=== PATIENT | male | born 1970 | race Caucasian/White ===

== ENCOUNTER 2018-05-08 14:28 | Emergency (ER) | payer OTHER ==
--- NOTE | 2018-05-08 15:54 | ER ---
Nurse's Notes [facility] Name: Errol Estrada Age: 47 yrs Sex: Male : 1970 Arrival Date: 05/08/2018 Time: 14:31 Bed 16 Private MD: None, None Diagnosis: An's palsy Presentation: 05/08 14:38 Presenting complaint: Patient states: right facial droop and numbness to right side of aa5 lips. Pt states "I woke up around 6am with the symptoms". Transition of care: patient was not received from another setting of care. Risk Assessment: Do you want to hurt yourself or someone else? Patient reports no desire to harm self or others. Initial Sepsis Screen: Does the patient meet any 2 criteria? No. Patient's initial sepsis screen is negative. Does the patient have a suspected source of infection? No. Patient's initial sepsis screen is negative. Care prior to arrival: None. 14:38 Method Of Arrival: Wheelchair aa5 14:38 Acuity: ROMELIA 3 aa5 14:45 No acute neurological deficit is noted. Onset of symptoms was May 08, 2018 at 06:00. Triage Assessment: 14:43 The onset of the patients symptoms was May 08, 2018 at 06:00. General: Appears in hj no apparent distress. uncomfortable, Behavior is calm, cooperative, appropriate for age. Pain: Denies pain. EENT: No signs and/or symptoms were reported regarding the EENT system. Neuro: Level of Consciousness is awake, alert, obeys commands, Oriented to person, place, time, situation, Appropriate for age Reports numbness. Cardiovascular: Capillary refill < 3 seconds Patient's skin is warm and dry. Respiratory: Airway is patent Respiratory effort is even, unlabored, Respiratory pattern is regular, symmetrical. GI: No signs and/or symptoms were reported involving the gastrointestinal system. : No signs and/or symptoms were reported regarding the genitourinary system. Derm: No signs and/or symptoms reported regarding the dermatologic system. Musculoskeletal: Reports numbness in R face, R eyebrow reports facial droop. Stroke Activation: Symptom onset > 6 hours Physician: Stroke Attending; Name: ; Notified At: ; Arrived At: Physician: Chief Stroke Resident; Name: ; Notified At: ; Arrived At: Physician: Stroke Resident; Name: ; Notified At: ; Arrived At: Physician: ED Attending; Name: ; Notified At: ; Arrived At: Physician: ED Resident; Name: ; Notified At: ; Arrived At: Historical: - Allergies: 14:37 No Known Allergies; aa5 - Home Meds: 14:37 None [Active]; aa5 - PMHx: 14:37 None; aa5 - PSHx: 14:37 None; aa5 - Immunization history:: Flu vaccine is not up to date. - Social history:: Smoking status: Patient uses tobacco products, chewing tobacco, Patient/guardian denies using alcohol, street drugs, The patient lives with family. - Ebola Screening: : No symptoms or risks identified at this time. - Family history:: not pertinent. Screenin:43 Abuse screen: Denies threats or abuse. Denies injuries from another. Nutritional hj screening: No deficits noted. Tuberculosis screening: No symptoms or risk factors identified. Fall Risk None identified. Assessment: 14:59 Reassessment: provider in room; provider states, not a stroke work up;. hj Vital Signs: 14:38 BP 152 / 100; Pulse 76; Resp 18 S; Temp 99.0(TE); Pulse Ox 96% on R/A; Weight 90.72 kg aa5 (R); Height 5 ft. 8 in. (172.72 cm) (R); Pain 0/10; 14:38 Body Mass Index 30.41 (90.72 kg, 172.72 cm) aa5 ED Course: 14:31 Patient arrived in ED. mr 14:31 None, None is Private Physician. mr 14:37 Arm band placed on. aa5 14:39 Triage completed. aa5 14:42 Deric Hastings MD is Attending Physician. ma2 14:42 Kevin Wheeler RN is Primary Nurse. hj 14:59 Patient has correct armband on for positive identification. Call light in reach. Side hj rails up X 1. Side rails up X2. Adult w/ patient. 15:21 No provider procedures requiring assistance completed. Patient did not have IV access hj during this emergency room visit. Administered Medications: No medications were administered Outcome: 15:08 Discharge ordered by . ma2 15:21 Discharged to home ambulatory, with family. hj 15:21 Condition: stable 15:21 Discharge instructions given to patient, family, Instructed on discharge instructions, follow up and referral plans. medication usage, Demonstrated understanding of instructions, follow-up care, medications, Prescriptions given X 3. 15:22 Patient left the ED. elma Signatures: Adela Judge Audri, RN RN aa5 Kevin Wheeler RN RN hj Deric Hastings MD MD ma2
--- NOTE | 2018-05-08 15:54 | EDPHYS ---
Physician Documentation [facility] Name: Errol Estrada Age: 47 yrs Sex: Male : 1970 Arrival Date: 05/08/2018 Time: 14:31 Bed 16 Private MD: None, None ED Physician Deric Hastings HPI: 05/08 15:04 This 47 yrs old Male presents to ER via Wheelchair with complaints of Facial ma2 Droop. 15:04 The patient presents to the emergency department with weakness of the right side of the ma2 face, that is moderate. Onset: The symptoms/episode began/occurred suddenly, 12 hour(s) ago. Context: occurred at home. Associated signs and symptoms: Pertinent negatives: altered mental status, chills, dizziness, fever, headache, nausea, seizure, syncope, blurred vision, double vision. Severity of symptoms: At their worst the symptoms were moderate in the emergency department the symptoms are unchanged. Patient's baseline: Neuro: alert and fully oriented, Motor: no deficits, Ambulation: Speech: normal, The patient has a previous history of. Current symptoms: Currently, the patient is not experiencing any symptoms. The patient has not experienced similar symptoms in the past. Historical: - Allergies: 14:37 No Known Allergies; aa5 - Home Meds: 14:37 None [Active]; aa5 - PMHx: 14:37 None; aa5 - PSHx: 14:37 None; aa5 - Immunization history:: Flu vaccine is not up to date. - Social history:: Smoking status: Patient uses tobacco products, chewing tobacco, Patient/guardian denies using alcohol, street drugs, The patient lives with family. - Ebola Screening: : No symptoms or risks identified at this time. - Family history:: not pertinent. ROS: 15:04 Constitutional: Negative for fever, chills, and weight loss, Eyes: Negative for injury, ma2 pain, redness, and discharge. 15:04 Neuro: Positive for weakness. 15:04 Neuro: Negative for altered mental status, dizziness, gait disturbance, headache, loss of consciousness, numbness, syncope, tinnitus, tremor, visual changes. 15:04 All other systems are negative. Exam: 15:04 Constitutional: This is a well developed, well nourished patient who is awake, alert, ma2 and in no acute distress. ENT: Nares patent. No nasal discharge, no septal abnormalities noted. Tympanic membranes are normal and external auditory canals are clear. Oropharynx with no redness, swelling, or masses, exudates, or evidence of obstruction, uvula midline. Mucous membranes moist. Chest/axilla: Normal chest wall appearance and motion. Nontender with no deformity. No lesions are appreciated. Cardiovascular: Regular rate and rhythm with a normal S1 and S2. No gallops, murmurs, or rubs. Normal PMI, no JVD. No pulse deficits. Respiratory: Lungs have equal breath sounds bilaterally, clear to auscultation and percussion. No rales, rhonchi or wheezes noted. No increased work of breathing, no retractions or nasal flaring. Abdomen/GI: Soft, non-tender, with normal bowel sounds. No distension or tympany. No guarding or rebound. No evidence of tenderness throughout. 15:04 Neuro: Cranial nerves: facial droop noted on right, with forehead involved. ear exam wnl, no rashes , Cerebellar function: is grossly normal, Motor: moves all fours, Sensation: is normal, Gait: is steady. Vital Signs: 14:38 BP 152 / 100; Pulse 76; Resp 18 S; Temp 99.0(TE); Pulse Ox 96% on R/A; Weight 90.72 kg aa5 (R); Height 5 ft. 8 in. (172.72 cm) (R); Pain 0/10; 14:38 Body Mass Index 30.41 (90.72 kg, 172.72 cm) aa5 MDM: 14:42 Patient medically screened. [facility] 15:04 Data reviewed: vital signs, nurses notes. Counseling: I had a detailed discussion with ma2 the patient and/or guardian regarding: the historical points, exam findings, and any diagnostic results supporting the discharge/admit diagnosis, the presence of at least one elevated blood pressure reading (>120/80) during this emergency department visit, the need for outpatient follow up. Administered Medications: No medications were administered Disposition: 05/08/18 15:08 Discharged to Home. Impression: An's palsy. - Condition is Stable. - Discharge Instructions: An Palsy, Adult. - Prescriptions for Acyclovir 400 mg Oral Tablet - take 1 tablet by ORAL route every 6 hours; 30 tablet. Medrol (Cristi) 4 mg Oral Tablets, Dose Pack - take 1 tablet by ORAL route as directed - follow package instructions; 1 packet. - Medication Reconciliation Form, Thank You Letter, Antibiotic Education, Prescription Opioid Use form. - Follow up: Private Physician; When: Tomorrow; Reason: Continuance of care. - Problem is new. - Symptoms are unchanged. Signatures: Faby Spivey RN RN aa5 Kevin Wheeler RN RN Deric Hastings MD MD ma2 Corrections: (The following items were deleted from the chart) 15:22 15:08 05/08/2018 15:08 Discharged to Home. Impression: An's palsy. Condition is hj Stable. Forms are Medication Reconciliation Form, Thank You Letter, Antibiotic Education, Prescription Opioid Use. Follow up: Private Physician; When: Tomorrow; Reason: Continuance of care. Problem is new. Symptoms are unchanged. ma2
== END 2018-05-08 15:22 | disposition home or self-care (01) ==
LOC: ER 14:28
DX: G51.0 Bell's palsy (principal); Z72.0 Tobacco use
CPT/HCPCS: 99282